=== PATIENT | female | born 1995 | race Caucasian/White ===

== ENCOUNTER 2017-02-19 05:29 | Emergency (ER) | payer SELFPAY ==
[~2017-02-19] VITALS: Ht 157.5 cm; Wt 41.0 kg
[2017-02-19] MEDS ORDERED: SODIUM CHLORIDE 0.9% 1,000ML IVBOLUS ONE ×2 (06:00→09:00)
[2017-02-19 06:40] LABS: ASPARTATE AMINO TRANSFERASE 34 U/L (15-37); BLOOD UREA NITROGEN 18 mg/dL (7-18)
[2017-02-19] MEDS ORDERED: ONDANSETRON ODT 4 MG ONE (09:22)
[2017-02-19] MEDS ORDERED: ONDANSETRON ODT 4 MG PO ONE (09:30)
[2017-02-19 09:54] VITALS: BP 99/55
== END 2017-02-19 10:01 ==
LOC: EDBD 05:29 → ED 08:03
DX: I95.1 Orthostatic hypotension (principal); R00.1 Bradycardia, unspecified; F11.10 Opioid abuse, uncomplicated
CPT/HCPCS: 36415; 80053; 81001; 84703; 85025; 87086; 87106; 93005; 96360; 96361; 99285; J7030; Q0162